=== PATIENT | female | born 1945 | race Caucasian/White ===

== ENCOUNTER 2018-05-28 08:18 | Inpatient (IN) | payer MEDICARE ==
[~2018-05-28] VITALS: Ht 157.5 cm; Wt 77.0 kg
[~2018-05-28 08:18] MED LIST: ALBU8.5H8 IH; AMLO-150 PO; ASPI-496 PO; CARV3.1212 PO; DIAZ2TAB3 PO; ESTR5VIA INJ; FURO20TA3 PO; GABA300C10 PO; HYDR-2442 PO; HYDR-3342 PO; HYDR50TA3 PO; INSU100C SQ-INSULIN; INSU100I28 SC; LORA10CA PO; LOSA25TA25 PO; METF500T17 PO; OMEP-110 PO; PRAV80TA2 PO; SERT100T32 PO; SPIR25TA5 PO; ZOLP-413 PO
[2018-05-28] MEDS ORDERED: SODIUM CHLORIDE 0.9% 1,000 ML IV ONE (08:45)
[2018-05-28 08:48] VITALS: BP 175/76
[2018-05-28] MEDS ORDERED: CHLORHEXIDINE 15 ML UDC MM PRN (09:00)
[2018-05-28] MEDS ORDERED: ONDANSETRON 2MG/ML, 2ML IVPush PRN ×2 (09:00→11:30)
[2018-05-28 09:25] LABS: BASOPHILS # (AUTO) 0.02 x10^3/uL (0-0.1); BASOPHILS % (AUTO) 1 % (0-1); EOSINOPHILS # (AUTO) 0.06 x10^3/uL (0-0.4); EOSINOPHILS % (AUTO) 1 % (1-7); LYMPHOCYTES # (AUTO) 1.56 x10^3/uL (1-3.4); LYMPHOCYTES % (AUTO) 29 % (22-44); MD NO; MEAN CORPUSCULAR HEMOGLOBIN 27.7 pg (27.0-34.8); MEAN CORPUSCULAR HGB CONC 32.9 g/dL (32.4-35.8); MEAN CORPUSCULAR VOLUME 84.1 fL (80-100); MEAN PLATELET VOLUME 7.3 fL (7.4-10.4); MONOCYTES % (AUTO) 11 % (2-9); NEUTROPHILS # (AUTO) 3.15 x10^3/uL (1.8-6.8); NEUTROPHILS % (AUTO) 58 % (42-75); PLATELET COUNT 217 x10^3/uL (130-400); RED BLOOD COUNT 4.79 x10^6/uL (3.82-5.3); RED CELL DISTRIBUTION WIDTH 16.2 % (9.6-15.2)
[2018-05-28 09:29] LABS: INTERNATIONAL NORMALIZED RATIO 0.93 (0.93-1.1); PROTHROMBIN TIME 9.9 Seconds (9.6-11.5)
[2018-05-28 09:30] LABS: ALANINE AMINOTRANSFERASE 20 U/L (12-78); ALBUMIN 3.3 g/dL (3.4-5.0); ANION GAP 7 mmol/L (5-15); CALCIUM 8.7 mg/dL (8.5-10.1); CHLORIDE 108 mmol/L (98-107)
[2018-05-28] MEDS ORDERED: PLEASE ENTER HEIGHT AND WEIGHT MC SCH (09:30)
[2018-05-28 09:35] LABS: ALKALINE PHOSPHATASE 87 U/L (45-117); BILIRUBIN,TOTAL 0.6 mg/dL (0.2-1.0); TOTAL PROTEIN 6.4 g/dL (6.4-8.2)
[2018-05-28] MEDS ORDERED: FENTANYL PF 250 MCG/5ML ONE (09:37)
[2018-05-28] MEDS ORDERED: HYDR-3237 PO (09:38)
[2018-05-28] MEDS ORDERED: METF500T17 PO (09:38)
[2018-05-28] MEDS ORDERED: ROCURONIUM 10MG/ML,5ML ONE (09:56)
[2018-05-28] MEDS ORDERED: VERAPAMIL 2.5 MG/ML, 2ML ONE (09:56)
[2018-05-28] MEDS ORDERED: CEFAZOLIN 1,000 MG ONE (09:56)
[2018-05-28] MEDS ORDERED: NITROGLYCERIN 5 MG/ML, 10ML ONE (09:56)
[2018-05-28] MEDS ORDERED: SUCCINYLCHOLINE 20 MG/ML, 10ML ONE (09:56)
[2018-05-28] MEDS ORDERED: PROPOFOL 10 MG/ML, 20ML ONE (09:56)
[2018-05-28] MEDS ORDERED: PROTAMINE SULFATE 10 MG/ML, 5ML ONE (11:06)
[2018-05-28] MEDS ORDERED: HYDROcodone/APAP 5/325 TABLET PO PRN (11:30)
[2018-05-28] MEDS ORDERED: LABETALOL 20 MG/4 ML IVPush PRN (11:30)
[2018-05-28] MEDS ORDERED: ACETAMINOPHEN 325 MG TABLET PO PRN (11:30)
[2018-05-28 11:42] VITALS: BP 108/43
[2018-05-28] MEDS: hydrALAzine 20 MG/ML, 1ML IVPush PRN (11:56)
[2018-05-28 14:01] VITALS: BP 124/42
[2018-05-28] MEDS: INSULIN REGULAR 100 UNITS/ML, 3ML VIAL SQ-INSULIN SCH ×2 (16:00→22:09)
[2018-05-28] MEDS ORDERED: ALBUTEROL SULFATE 2.5 MG/3 ML NPPB PRN (16:00)
[2018-05-28] MEDS: SODIUM CHLORIDE 0.9% 1,000 ML IV SCH (17:00)
[2018-05-28] MEDS: ASPIRIN 81 MG TABLET EC PO SCH (17:44)
[2018-05-28 20:00] VITALS: BP 134/68
[2018-05-28] MEDS ORDERED: CLOPIDOGREL 300 MG TABLET PO ONE (21:00)
[2018-05-29] VITALS (7 sets, daily range): BP systolic 133–188; BP diastolic 49–84
[2018-05-29] MEDS ORDERED: NITROGLYCERIN 0.4 MG BOTTLE (25 TABS) SL PRN (00:30)
[2018-05-29] MEDS ORDERED: NITROGLYCERIN 0.4 MG/SPRAY SL PRN (00:30)
[2018-05-29] MEDS ORDERED: MAALOX/HYOSCYAMINE/LIDOCAINE 45 ML BTL PO ONE (01:30)
[2018-05-29] MEDS: SODIUM CHLORIDE 0.9% 1,000 ML IV SCH ×2 (03:00→13:13)
[2018-05-29 06:13] LABS: BASOPHILS # (AUTO) 0.02 x10^3/uL (0-0.1); BASOPHILS % (AUTO) 0 % (0-1); EOSINOPHILS # (AUTO) 0.02 x10^3/uL (0-0.4); EOSINOPHILS % (AUTO) 0 % (1-7); LYMPHOCYTES # (AUTO) 1.03 x10^3/uL (1-3.4); LYMPHOCYTES % (AUTO) 13 % (22-44); MD NO; MEAN CORPUSCULAR HEMOGLOBIN 28.7 pg (27.0-34.8); MEAN CORPUSCULAR VOLUME 84.4 fL (80-100); MEAN PLATELET VOLUME 7.6 fL (7.4-10.4); MONOCYTES # (AUTO) 0.71 x10^3/uL (0.2-0.8); MONOCYTES % (AUTO) 9 % (2-9); NEUTROPHILS # (AUTO) 5.94 x10^3/uL (1.8-6.8); NEUTROPHILS % (AUTO) 77 % (42-75); PLATELET COUNT 159 x10^3/uL (130-400); RED BLOOD COUNT 4.32 x10^6/uL (3.82-5.3); RED CELL DISTRIBUTION WIDTH 16.4 % (9.6-15.2)
[2018-05-29 06:23] LABS: ANION GAP 6 mmol/L (5-15); CALCIUM 7.9 mg/dL (8.5-10.1); CHLORIDE 109 mmol/L (98-107)
[2018-05-29 06:26] LABS: CREATININE 0.92 mg/dL (0.55-1.02)
[2018-05-29] MEDS: INSULIN REGULAR 100 UNITS/ML, 3ML VIAL SQ-INSULIN SCH ×2 (07:00→11:32)
[2018-05-29] MEDS: ASPIRIN 81 MG TABLET EC PO SCH (08:36)
[2018-05-29] MEDS: hydrALAzine 20 MG/ML, 1ML IVPush PRN (08:37)
[2018-05-29] MEDS ORDERED: CLOPIDOGREL 75 MG TABLET PO SCH (09:00)
[2018-05-29] MEDS ORDERED: LOSARTAN 50MG TABLET PO SCH (09:30)
[2018-05-29] MEDS ORDERED: SPIRONOLACTONE 25 MG TABLET PO SCH (09:30)
[2018-05-29] MEDS ORDERED: HYDROCHLOROTHIAZIDE 25 MG TABLET PO SCH (09:30)
[2018-05-29] MEDS ORDERED: AMLODIPINE 5 MG TABLET PO SCH (09:30)
[2018-05-29] MEDS ORDERED: CARVEDILOL 3.125 MG TABLET PO SCH (09:30)
[2018-05-29] MEDS ORDERED: FUROSEMIDE 40 MG TABLET PO SCH (09:30)
[2018-05-29] MEDS ORDERED: APIX5TAB PO (14:38)
[2018-05-29] MEDS ORDERED: PRAVASTATIN 40 MG TABLET PO SCH (21:00)
== END 2018-05-29 16:24 | disposition home or self-care (01) | DRG 266 ==
LOC: ORIP 08:18 → CSU 11:43 → 5SO 18:13
PROVIDERS: ADMIT Internal Medicine Cardiovascular Disease; ATTEND Internal Medicine Cardiovascular Disease
PROC: B24BZZ4 Ultrasonography of Heart with Aorta, Transesophageal (ICD-10-PCS; 2018-05-28)
PROC: 03HY32Z Insertion of Monitoring Device into Upper Artery, Percutaneous Approach (ICD-10-PCS; 2018-05-28)
PROC: B3101ZZ Fluoroscopy of Thoracic Aorta using Low Osmolar Contrast (ICD-10-PCS; 2018-05-28)
PROC: 02RF38Z Replacement of Aortic Valve with Zooplastic Tissue, Percutaneous Approach (ICD-10-PCS; principal; 2018-05-28 10:00)
DX: I35.0 Nonrheumatic aortic (valve) stenosis (principal); Z00.6 Encounter for examination for normal comparison and control in clinical research program; I50.33 Acute on chronic diastolic (congestive) heart failure; F41.9 Anxiety disorder, unspecified; E11.9 Type 2 diabetes mellitus without complications; E78.5 Hyperlipidemia, unspecified; I10 Essential (primary) hypertension; K21.9 Gastro-esophageal reflux disease without esophagitis; Z79.01 Long term (current) use of anticoagulants; Z79.4 Long term (current) use of insulin
CPT/HCPCS: 33361; 36415; 80048; 80053; 82962; 83880; 85025; 85347; 85610; 85730; 86850; 86900; 86923; 87081; 92986; 93005; 93308; 93312; 93321; 93325; 93355; C1760; C1769; C1894; G0378; J0690; J1815; J2704; J2720; J3010; J0330; J0360; J7030; Q9967

== ENCOUNTER 2020-09-03 09:06 | Outpatient (CLI) | payer MEDICARE ==
[~2020-09-03 09:06] MED LIST changes: +APIX5TAB PO; -HYDR-2442 PO; +HYDR-3237 PO; +HYDR-3565 PO; -HYDR50TA3 PO; +HYDR50TA6 PO
== END 2020-09-03 23:59 | disposition home or self-care (01) ==
LOC: CFH 09:06
PROVIDERS: ATTEND Internal Medicine Cardiovascular Disease
DX: I08.8 Other rheumatic multiple valve diseases (principal)
CPT/HCPCS: 93306